=== PATIENT | male | born 1965 | race Asian ===

== ENCOUNTER → 2018-03-24 | Outpatient (CLI) | payer BC ==
[~2018-03-24] MED LIST: BUPIVACAINE/PF 0.25% ONE; EPINEPHRINE 1 MG/ML, 1ML ONE; FLUT16SP NS; MONT10TA9 PO; MULT-717 PO; ROSU5TAB PO; VITAMIN C PO; [UNRECOGNIZED DRUG - OTHER] PO
== END ==
LOC: STAR 13:33
PROVIDERS: ATTEND Surgery
DX: Z02.9 Encounter for administrative examinations, unspecified (principal)

== ENCOUNTER 2018-04-04 06:12 | Day surgery (SDC) | payer BC ==
[2018-03-24 14:17] VITALS: BP 153/97
[~2018-04-04] VITALS: Ht 172.7 cm; Wt 77.1 kg
[~2018-04-04 06:12] MED LIST changes: -BUPIVACAINE/PF 0.25% ONE; -EPINEPHRINE 1 MG/ML, 1ML ONE
[2018-04-04] MEDS ORDERED: LACTATED RINGERS 1,000 ML IV SCH (06:53)
[2018-04-04] MEDS ORDERED: LIDOCAINE-MPF 1%, 2ML INFIL ONE (07:00)
[2018-04-04] MEDS ORDERED: DEXAMETHASONE 4 MG/ML, 1ML ONE (07:26)
[2018-04-04] MEDS ORDERED: ONDANSETRON 2MG/ML, 2ML ONE (07:26)
[2018-04-04] MEDS ORDERED: MIDAZOLAM 1 MG/ML, 2ML ONE (07:26)
[2018-04-04] MEDS ORDERED: FENTANYL PF 250 MCG/5ML ONE (07:26)
[2018-04-04] MEDS ORDERED: BUPIVACAINE 0.25% INFIL ONE (08:14)
[2018-04-04] MEDS ORDERED: EPINEPHRINE 1 MG/ML, 1ML INFIL ONE (08:15)
[2018-04-04] MEDS ORDERED: CEFAZOLIN 1,000 MG ONE (08:22)
[2018-04-04] MEDS ORDERED: PROPOFOL 10 MG/ML, 20ML ONE (08:22)
[2018-04-04] MEDS ORDERED: SUCCINYLCHOLINE 20 MG/ML, 10ML ONE (08:23)
[2018-04-04] MEDS ORDERED: MIDAZOLAM 1 MG/ML, 2ML IV PRN (08:30)
[2018-04-04] MEDS ORDERED: MORPHINE SULFATE 4 MG/ML, 1ML IVPush PRN (08:30)
[2018-04-04] MEDS ORDERED: OXYcodone 5 MG/5 ML ORAL.SOL UDC PO PRN (08:30)
[2018-04-04] MEDS ORDERED: LABETALOL 5MG/ML, 20ML IV PRN (08:30)
[2018-04-04] MEDS ORDERED: ACETAMINOPHEN 325 MG TABLET PO PRN (08:30)
[2018-04-04] MEDS ORDERED: DIPHENHYDRAMINE 50 MG/ML, 1ML IVPush PRN (08:30)
[2018-04-04] MEDS ORDERED: EPHEDRINE 50 MG/ML, 1ML IM PRN (08:30)
[2018-04-04] MEDS ORDERED: LORazepam 2 MG/ML, 1ML IVPush PRN (08:30)
[2018-04-04] MEDS ORDERED: ONDANSETRON ODT 8 MG PO PRN (08:30)
[2018-04-04] MEDS ORDERED: DEXAMETHASONE 4 MG/ML, 1ML IV PRN (08:30)
[2018-04-04] MEDS ORDERED: FENTANYL PF 100 MCG/2ML IV PRN (08:30)
[2018-04-04] MEDS ORDERED: ACETAMINOPHEN 650 MG/20.3 ML UDC ONE (09:54)
[2018-04-04] MEDS ORDERED: FENTANYL PF 100 MCG/2ML ONE (09:54)
[2018-04-04] MEDS ORDERED: OXYcodone 5 MG/5 ML ORAL.SOL UDC ONE (09:54)
== END 2018-04-04 11:55 ==
LOC: OUT 06:12
PROVIDERS: ATTEND Surgery
DX: E04.1 Nontoxic single thyroid nodule (principal); E78.5 Hyperlipidemia, unspecified; C73 Malignant neoplasm of thyroid gland; I10 Essential (primary) hypertension; J45.909 Unspecified asthma, uncomplicated
CPT/HCPCS: 60220; 88307; C1760; J0171; J0330; J0690; J1100; J2250; J2405; J2704; J3010; J3490; J7120

== ENCOUNTER 2018-06-06 05:57 | Inpatient (IN) | payer BC ==
[~2018-06-06] VITALS: Ht 172.7 cm; Wt 82.3 kg
[2018-06-06] MEDS ORDERED: LACTATED RINGERS 1,000 ML IV SCH (06:11)
[2018-06-06] MEDS ORDERED: ACETAMINOPHEN 500 MG TABLET PO ONE (07:30)
[2018-06-06] MEDS ORDERED: GABAPENTIN 300 MG CAPSULE PO ONE (07:30)
[2018-06-06] MEDS ORDERED: MIDAZOLAM 1 MG/ML, 2ML ONE (07:32)
[2018-06-06] MEDS ORDERED: LIDOCAINE GEL 2%, 5ML ONE (07:32)
[2018-06-06] MEDS ORDERED: FENTANYL PF 250 MCG/5ML ONE (07:32)
[2018-06-06] MEDS ORDERED: PROMETHAZINE 25 MG/ML, 1ML IV PRN (08:30)
[2018-06-06] MEDS ORDERED: ALBUTEROL/IPRATROPIUM 2.5MG/0.5MG, 3 ML NPPB PRN (08:30)
[2018-06-06] MEDS ORDERED: MIDAZOLAM 1 MG/ML, 2ML IV PRN (08:30)
[2018-06-06] MEDS ORDERED: MEPERIDINE/PF 25MG/0.5ML IVPush PRN (08:30)
[2018-06-06] MEDS ORDERED: SCOPOLAMINE PATCH, 1.5MG PATCH.TD72 TD PRN (08:30)
[2018-06-06] MEDS ORDERED: FENTANYL PF 100 MCG/2ML IV PRN (08:30)
[2018-06-06] MEDS ORDERED: ONDANSETRON 2MG/ML, 2ML IV PRN (08:30)
[2018-06-06] MEDS ORDERED: HYDROmorphone 1 MG/ML, 1ML IV PRN (08:30)
[2018-06-06] MEDS ORDERED: BUPIVACAINE/PF-EPI 0.5% 1:200K INFIL ONE (08:32)
[2018-06-06] MEDS ORDERED: LIDOCAINE-MPF 2% ,5ML ONE (08:53)
[2018-06-06] MEDS ORDERED: PROPOFOL 10 MG/ML, 20ML ONE (08:53)
[2018-06-06] MEDS ORDERED: ONDANSETRON 2MG/ML, 2ML ONE (08:53)
[2018-06-06] MEDS ORDERED: DEXAMETHASONE 4 MG/ML, 1ML ONE (08:53)
[2018-06-06] MEDS ORDERED: OXYcodone 5 MG/5 ML ORAL.SOL UDC ONE ×2 (09:50→10:11)
[2018-06-06] MEDS ORDERED: LABETALOL 5MG/ML, 20ML ONE (09:54)
[2018-06-06] MEDS: OXYcodone 5 MG/5 ML ORAL.SOL UDC PO PRN ×2 (09:56→10:14)
[2018-06-06] MEDS: LABETALOL 5MG/ML, 20ML IV PRN ×2 (09:56→10:08)
[2018-06-06] MEDS ORDERED: FENTANYL PF 100 MCG/2ML ONE (10:11)
[2018-06-06] MEDS ORDERED: HYDROcodone/APAP 5/325 TABLET PO PRN (12:30)
[2018-06-06] MEDS ORDERED: ACETAMINOPHEN 650 MG SUPP PR PRN (12:30)
[2018-06-06] MEDS ORDERED: FLUTICASONE NASAL SPRAY 16GM NAS PRN (12:30)
[2018-06-06] MEDS ORDERED: hydrALAzine 20 MG/ML, 1ML IV PRN (12:30)
[2018-06-06] MEDS ORDERED: ACETAMINOPHEN 325 MG TABLET PO PRN (12:30)
[2018-06-06 15:15] VITALS: BP 124/81
[2018-06-06] MEDS ORDERED: ROCURONIUM 10MG/ML,5ML ONE (15:35)
[2018-06-06] MEDS ORDERED: SUCCINYLCHOLINE 20 MG/ML, 10ML ONE (15:35)
[2018-06-06] MEDS: CALCIUM/VITAMIN D3 250-125 TABLET PO SCH ×2 (16:01→19:44)
[2018-06-06] MEDS: SODIUM CHLORIDE FLUSH 10ML SYR IVF SCH (19:44)
[2018-06-06 20:00] VITALS: BP 131/92
[2018-06-06] MEDS ORDERED: ATORVASTATIN 10 MG TABLET PO SCH (21:00)
[2018-06-06] MEDS ORDERED: MONTELUKAST 10 MG TABLET PO SCH (21:00)
[2018-06-06 23:48] VITALS: BP 135/80
[2018-06-07 04:59] VITALS: BP 122/73
[2018-06-07] MEDS ORDERED: LEVOTHYROXINE 150 MCG TABLET PO SCH (06:00)
[2018-06-07] MEDS ORDERED: LEVOTHYROXINE 100 MCG TABLET ONE (06:35)
[2018-06-07] MEDS ORDERED: LEVOTHYROXINE 25 MCG TABLET ONE (06:35)
[2018-06-07 07:21] VITALS: BP 135/81
[2018-06-07] MEDS: SODIUM CHLORIDE FLUSH 10ML SYR IVF SCH (08:57)
[2018-06-07] MEDS: CALCIUM/VITAMIN D3 250-125 TABLET PO SCH (08:57)
[2018-06-07] MEDS ORDERED: ASCORBIC ACID 500 MG TABLET PO SCH (09:00)
[2018-06-07] MEDS ORDERED: HYDR-3240 PO (09:36)
[2018-06-07] MEDS ORDERED: LEVO150T PO (09:37)
== END 2018-06-07 11:55 | disposition home or self-care (01) | DRG 627 ==
LOC: OUT 05:57 → 4NOR 11:05 → OUT 11:48 → DCLOUNGE 06-07 11:40
PROVIDERS: ADMIT Surgery; ATTEND Surgery
PROC: 0GTG0ZZ Resection of Left Thyroid Gland Lobe, Open Approach (ICD-10-PCS; principal; 2018-06-06 08:00)
DX: C73 Malignant neoplasm of thyroid gland (principal); E78.5 Hyperlipidemia, unspecified; Z82.49 Family history of ischemic heart disease and other diseases of the circulatory system; Z83.3 Family history of diabetes mellitus
CPT/HCPCS: 36415; 82310; 83970; 88307; J1100; J2250; J2405; J2704; J3010; J3490; C1760; J0330; J7120